=== PATIENT | female | born 1995 | race Hispanic/Latino ===

== ENCOUNTER 2018-03-03 22:45 | Emergency (ER) | payer OTHER ==
[2018-03-03 22:58] VITALS: O2SAT 99
--- NOTE | 2018-03-04 00:03 | ED PDOC ---
HPI: Back Time Seen by Provider: 03/03/18 23:32 Chief Complaint (Nursing): Back Pain Chief Complaint (Provider): Right flank pain History Per: Patient Additional Complaint(s): 22 y/o F with hx of scoliosis as a child requiring surgery who presents with Right sided flank pain since 4am this morning. Pt states that she suddenly began having Right sided back pain at about 4 am this morning. She had one episode of N/V at that time. She has been drinking normally but continues to have the back pain no matter what position she sits in. Nothing makes the pain better. She took one extra strength Tylenol at about 5am this morning with minimal impr ovement. Denies fever, chills, night sweats, diarrhea, cough, sore throat. She admits to mild dyuria since this morning. Denies urinary frequency or hesitancy. Past Medical History Reviewed: Historical Data, Nursing Documentation, Vital Signs Vital Signs: Last Vital Signs Temp 98.9 F 03/03/18 22:55 Pulse 68 03/03/18 22:55 Resp 18 03/03/18 22:55 BP 121/68 03/03/18 22:55 Pulse Ox 99 03/03/18 22:55 - Medical History PMH: No Chronic Diseases Other PMH: scoliosis as a child - Surgical History Surgical History: Back Surgery (SPINAL FUSION), Tonsillectomy - Family History Family History: States: Unknown Family Hx - Home Medications Home Medications: Ambulatory Orders Medication Instructions Recorded RX: No Known Home Med 07/01/15 - Allergies Allergies/Adverse Reactions: Allergies Allergy/AdvReac Type Severity Reaction Status Date / Time No Known Allergies Allergy Verified 10/27/17 17:22 Physical Exam - Reviewed Nursing Documentation Reviewed: Yes Vital Signs Reviewed: Yes - Physical Exam Appears: Positive for: Uncomfortable Skin: Positive for: Normal Color Eye Exam: Positive for: Normal appearance ENT: Positive for: Normal ENT Inspection Neck: Positive for: Normal Cardiovascular/Chest: Positive for: Regular Rate, Rhythm Respiratory: Positive for: Normal Breath Sounds Gastrointestinal/Abdominal: Positive for: Soft, Tenderness (mild RUQ). Negative for: Distended, Guarding, Rebound Back: Positive for: R CVA Tenderness (+ Right CVA tenderness), Decreased ROM (mild RIght sided back tenderness on flexion of back. ). Negative for: L CVA Tenderness Neurologic/Psych: Positive for: Alert, Oriented - Laboratory Results Result Diagrams: 03/03/18 23:45 - ECG O2 Sat by Pulse Oximetry: 99 Medical Decision Making Medical Decision Making: CBC, CMP Normal Saline 1L fluid bolus Toradol 15mg IV x 1 CT abd/pelvis w/o contrast Urine dip: LE negative, Nitrate negative, no blood noted. Urine preg: negative Pt endorsed to JADYN Hernandez pending CT scan and blood work results and re- evaluation. Disposition - Clinical Impression Clinical Impression: Flank pain, acute - Patient ED Disposition Is Patient to be Admitted: Transfer of Care (JADYN Hernandez) - Disposition Disposition: Transfer of Care Disposition Time: 00:37 Condition: FAIR Forms: [employer] (Paraguayan)
[2018-03-04 00:05] LABS: BASO # 0.1 K/uL (0.0-0.2); BASO % 1.1 % (0.0-2.0); EOS # 0.4 K/uL (0.0-0.7); EOS % 4.8 % (0.0-4.0); HEMOGLOBIN 13.9 g/dL (12.0-16.0); LYMPH # 2.6 K/uL (1.0-4.3); LYMPH % 28.4 % (20.0-40.0); MEAN CELL VOLUME 93.1 fl (81.0-99.0); MEAN CORPUSCULAR HEMOGLOBIN 31.7 pg (27.0-31.0); MEAN PLATELET VOLUME 7.1 fl (7.2-11.7); MONO # 0.9 K/uL (0.0-0.8); MONO % 10.1 % (0.0-10.0); NEUT # 5.1 K/uL (1.8-7.0); NEUT % 55.6 % (50.0-75.0); RBC 4.39 Mil/uL (3.80-5.20); WHITE BLOOD COUNT 9.2 K/uL (4.8-10.8)
[2018-03-04 00:15] LABS: ALB/GLOB RATIO 1.5 (1.0-2.1); ALBUMIN 4.8 g/dL (3.5-5.0); ALT/SGPT 27 U/L (9-52); AST/SGOT 38 U/L (14-36); BLOOD UREA NITROGEN 11 mg/dl (7-17); CALCIUM 10.1 mg/dL (8.4-10.2); GFR NON-AFRICAN AMERICAN > 60
[2018-03-04] MEDS ORDERED: Sodium Chloride 0.9% 1,000 ML IV SCH (00:30)
--- NOTE | 2018-03-04 00:47 | ED PDOC ---
- Laboratory Results Result Diagrams: 03/03/18 23:45 03/03/18 23:45 Lab Results: Total Bilirubin 0.3 mg/dl (0.2-1.3) 03/03/18 23:45 AST 38 U/L (14-36) H 03/03/18 23:45 ALT 27 U/L (9-52) 03/03/18 23:45 Alkaline Phosphatase 97 U/L (38-126) 03/03/18 23:45 Total Protein 8.0 G/DL (6.3-8.2) 03/03/18 23:45 Albumin 4.8 g/dL (3.5-5.0) 03/03/18 23:45 Globulin 3.2 gm/dL (2.2-3.9) 03/03/18 23:45 Albumin/Globulin Ratio 1.5 (1.0-2.1) 03/03/18 23:45 Urine POC: Negative - ECG O2 Sat by Pulse Oximetry: 99 (RA) Pulse Ox Interpretation: Normal Medical Decision Making Medical Decision Making: Patient endorsed to journalists and other writersDavid PA-C, at 0040 due to shift change. Pertinent details reviewed. Patient pending CT results and re-evaluation. Labs reviewed. 01:05 CT Abd Pelvis reviewed, [facility]Arad report follows FINDINGS: The visualized lung bases are unremarkable. Normal unenhanced liver. Normal gallbladder and extrahepatic biliary system. Normal unenhanced spleen. Normal pancreas. Normal bilateral adrenal glands. Normal size of the right kidney. There is no right renal mass. There are no right renal calculi. There is no right hydronephrosis. Normal visualized right ureter. Normal size of the left kidney. There is no left renal mass. 6 mm left renal nonobstructing stone. There is no left hydronephrosis. Normal visualized left ureter. Normal visualized stomach. Normal small intestine. Uncomplicated diverticulosis of the colon. The appendix is visualized and appears normal. There is no demonstrated peritoneal fluid. Normal abdominal aorta. Normal inferior vena cava. Normal retroperitoneum. Mild diffuse thickening of the urinary bladder. There is no pelvic mass lesion or lymphadenopathy. There is no pelvic fluid. Normal abdominal wall. Intrauterine device is unremarkable. Lower thoracic metallic hardware is unremarkable. IMPRESSION: Mild constipation. Nonobstructing left nephrolithiasis. On re-evaluation, patient reports slight improvement of symptoms. Patient reports she has regular BMs and no history of constipation. On exam, patient remains AAOx3, in no acute distress. Lungs clear to auscultation, cardiac RRR, abdomen soft, non-tender, repeat neuro exam shows no focal findings. (+) tenderness to right parathoracic/flank - likely musculoskeletal. Flexeril 10mg PO ordered - patient not driving home. Vitals stable. Lab/Diagnostic results d/w the patient in great detail. Diagnosis of acute flank pain, constipation, probable muscle strain d/w the patient. Based on history, exam and diagnostic results, plan will be for outpatient fo llow up with PMD. Patient instructed to follow-up with pmd / referral provided / the clinic in 1-2 days without fail. Advised to take medication as prescribed. Return to the emergency room at any time for any new or worsening symptoms. Patient states she fully agrees with and understands discharge instructions. States that she agrees with the plan and disposition. Verbalized and repeated discharge instructions and plan. I have given the patient opportunity to ask any additional questions. Disposition Counseled Patient/Family Regarding: Studies Performed, Diagnosis, Need For Followup, Rx Given - Clinical Impression Clinical Impression: Flank pain, acute, Constipation, Muscle strain - POA Present On Arrival: None - Disposition Referrals: [facility] [Provider Group] Disposition: Routine/Home Disposition Time: 01:40 Condition: FAIR Additional Instructions: The emergency medical care you received today was directed at your acute symptoms. If you were prescribed any medication, please fill it and take as directed. It may take several days for your symptoms to resolve. Return to the Emergency Department if your symptoms worsen, do not improve, or if you have any other problems. Please contact your doctor in 2 days for re-evaluation and follow up / or call one of the physicians/clinics you have been referred to that are listed on the Patient Visit Information form that is included in your discharge packet. Bring any paperwork you were given at discharge with you along with any medications you are taking to your follow up visit. Our treatment cannot replace ongoing medical care by a primary care provider (PCP) outside of the emergency department. Prescriptions: Docusate Sodium [Colace] 100 mg PO BID PRN #20 capsule PRN Reason: Constipation RX: Naproxen 500 mg PO BID PRN #20 tab PRN Reason: Pain, Moderate (4-7) Instructions: Constipation in Adults, High Fiber Diet, Muscle Strain (DC), Flank Pain Forms: [employer] (Mongolian) Print Language: CZECH Results - Lab Results Lab Results: 03/03/18 03/03/18 23:45 23:45 WBC 9.2 RBC 4.39 Hgb 13.9 Hct 40.9 MCV 93.1 MCH 31.7 H MCHC 34.0 RDW 13.0 Plt Count 389 MPV 7.1 L Neut % (Auto) 55.6 Lymph % (Auto) 28.4 [place] % (Auto) 10.1 H Eos % (Auto) 4.8 H Baso % (Auto) 1.1 Neut # (Auto) 5.1 Lymph # (Auto) 2.6 [place] # (Auto) 0.9 H Eos # (Auto) 0.4 Baso # (Auto) 0.1 Sodium 141 Potassium 3.9 Chloride 105 Carbon Dioxide 25 Anion Gap 15 BUN 11 Creatinine 0.7 Est GFR ( Amer) > 60 Est GFR (Non-Af Amer) > 60 Random Glucose 95 Calcium 10.1 Total Bilirubin 0.3 AST 38 H ALT 27 Alkaline Phosphatase 97 Total Protein 8.0 Albumin 4.8 Globulin 3.2 Albumin/Globulin Ratio 1.5
[2018-03-04 01:57] VITALS: BP 120/66; PULSE 72; RESP 16; TEMP 98.1
--- NOTE | 2018-03-04 10:49 | CT ---
Date of service: 03/04/2018 PROCEDURE: CT Abdomen and Pelvis without intravenous contrast HISTORY: Right flank pain, evaluate for nephrolithiasis COMPARISON: None. TECHNIQUE: Helical CT of the abdomen and pelvis was performed without oral or intravenous contrast as per referring physician request. Coronal and sagittal reformats were generated. Contrast dose: None Radiation dose: Total exam DLP = 261.0 mGy-cm. This CT exam was performed using one or more of the following dose reduction techniques: Automated exposure control, adjustment of the mA and/or kV according to patient size, and/or use of iterative reconstruction technique. FINDINGS: LOWER THORAX: Unremarkable. LIVER: Unremarkable. No gross lesion or ductal dilatation. GALLBLADDER AND BILE DUCTS: Unremarkable. PANCREAS: Unremarkable. No gross lesion or ductal dilatation. SPLEEN: Unremarkable. ADRENALS: Unremarkable. No mass. KIDNEYS AND URETERS: A small punctate intrarenal calculus identified at the midpole left kidney in the lateral calyx. No right radiodense urolithiasis. No perinephric fluid collection or obstructive uropathy is appreciate bilaterally. The bilateral ureters appear normal caliber overall. VASCULATURE: Unremarkable. No aortic aneurysm. No aortic atherosclerotic calcification or mural plaque present. BOWEL: Unremarkable. No obstruction. No gross mural thickening. APPENDIX: Unremarkable. Normal appendix. PERITONEUM: Unremarkable. No free fluid. No free air. LYMPH NODES: Unremarkable. No enlarged lymph nodes. BLADDER: Unremarkable. REPRODUCTIVE: Unremarkable. BONES: No acute fracture. OTHER FINDINGS: None. IMPRESSION: Punctate nonobstructing intrarenal calculus midpole left kidney. No obstructive uropathy bilaterally. Otherwise, unremarkable non contrast enhanced CT of the abdomen and pelvis. Concordant preliminary report from [facility], 03/04/2018 1:02 a.m..
== END 2018-03-04 01:57 | disposition home or self-care (01) ==
LOC: H.ER 22:45
DX: M54.9 Dorsalgia, unspecified (principal); K59.00 Constipation, unspecified; S39.012A Strain of muscle, fascia and tendon of lower back, initial encounter; Z87.39 Personal history of other diseases of the musculoskeletal system and connective tissue
CPT/HCPCS: 74176; 80053; 81025; 85025; 96361; 96374; 99283; J1885; J7030

== ENCOUNTER 2018-03-07 18:37 | Emergency (ER) | payer OTHER ==
[2018-03-07 19:32] VITALS: O2SAT 100
[2018-03-07] MEDS ORDERED: Sodium Chloride 0.9% 1,000 ML IV STA (20:27)
[2018-03-07 21:01] LABS: SQUAMOUS EPITHIAL 1 /hpf (0-5); URINE BACTERIA RARE (<OCC); URINE BILIRUBIN NEGATIVE (NEGATIVE); URINE BLOOD NEGATIVE (NEGATIVE); URINE CLARITY CLEAR (Clear); URINE COLOR STRAW (YELLOW); URINE GLUCOSE (UA) NEG (NEGATIVE); URINE LEUKOCYTE ESTERASE NEG Leu/uL (Negative); URINE PROTEIN NEGATIVE (NEGATIVE); URINE UROBILINOGEN 0.2-1.0 mg/dL (0.2-1.0)
--- NOTE | 2018-03-07 21:23 | ED PDOC ---
HPI: Back Time Seen by Provider: 03/07/18 19:55 Chief Complaint (Nursing): Back Pain Chief Complaint (Provider): Back Pain History Per: Patient History/Exam Limitations: no limitations Onset/Duration Of Symptoms: Days (x4) Current Symptoms Are (Timing): Still Present Additional Complaint(s): Patient is a 22 y/o female with no significant PMHx who presents to the ED for evaluation of right-sided flank pain ongoing for the past four days. Patient claims that pain is radiating to her lower back. Patient describes the quality of pain as sharp and an 8/10 in severity. Patient came into the ED four days ago for the same issue. Patient returned home and still had pain. Patient denies fever, N/V/D, difficulty walking, and any allergies. PCP: None Provided Past Medical History Reviewed: Historical Data, Nursing Documentation, Vital Signs Vital Signs: Last Vital Signs Temp 98.2 F 03/07/18 19:27 Pulse 82 03/07/18 19:27 Resp 16 03/07/18 19:27 BP 123/72 03/07/18 19:27 Pulse Ox 100 03/07/18 19:27 - Medical History PMH: No Chronic Diseases - Surgical History Surgical History: Back Surgery (SPINAL FUSION), Tonsillectomy - Family History Family History: States: Unknown Family Hx - Social History Current smoker - smoking cessation education provided: No Alcohol: Other (Stopped Drinking Recently) Drugs: Denies - Home Medications Home Medications: Ambulatory Orders Medication Instructions Recorded Docusate Sodium [Colace] 100 mg PO BID PRN #20 capsule 03/04/18 RX: Naproxen 500 mg PO BID PRN #20 tab 03/04/18 - Allergies Allergies/Adverse Reactions: Allergies Allergy/AdvReac Type Severity Reaction Status Date / Time No Known Allergies Allergy Verified 10/27/17 17:22 Review of Systems ROS Statement: Except As Marked, All Systems Reviewed And Found Negative Constitutional: Negative for: Fever, Chills Gastrointestinal: Negative for: Nausea, Vomiting, Diarrhea Musculoskeletal: Positive for: Back Pain (right flank ) Physical Exam - Reviewed Nursing Documentation Reviewed: Yes Vital Signs Reviewed: Yes - Physical Exam Appears: Positive for: No Acute Distress. Negative for: Uncomfortable Head Exam: Positive for: ATRAUMATIC, NORMAL INSPECTION, NORMOCEPHALIC Skin: Positive for: Normal Color Eye Exam: Positive for: Normal appearance ENT: Positive for: Normal ENT Inspection Neck: Positive for: Normal Cardiovascular/Chest: Positive for: Regular Rate, Rhythm Respiratory: Positive for: Normal Breath Sounds Gastrointestinal/Abdominal: Positive for: Normal Exam, Soft. Negative for: Tenderness Back: Positive for: Normal Inspection Extremity: Positive for: Normal ROM (Upper/Lower) Neurologic/Psych: Positive for: Alert, Oriented - Laboratory Results Result Diagrams: 03/07/18 21:09 03/07/18 21:09 Lab Results: Urine Color Straw (YELLOW) 03/07/18 20:43 Urine Clarity Clear (Clear) 03/07/18 20:43 Urine pH 7.0 (5.0-8.0) 03/07/18 20:43 Ur Specific [place] 1.006 (1.003-1.030) 03/07/18 20:43 Urine Protein Negative mg/dL (NEGATIVE) 03/07/18 20:43 Urine Glucose (UA) Neg mg/dL (NEGATIVE) 03/07/18 20:43 Urine Ketones Negative mg/dL (NEGATIVE) 03/07/18 20:43 Urine Blood Negative (NEGATIVE) 03/07/18 20:43 Urine Nitrate Negative (NEGATIVE) 03/07/18 20:43 Urine Bilirubin Negative (NEGATIVE) 03/07/18 20:43 Urine Urobilinogen 0.2-1.0 mg/dL (0.2-1.0) 03/07/18 20:43 Ur Leukocyte Esterase Neg Tres/uL (Negative) 03/07/18 20:43 Urine RBC (Auto) 1 /hpf (0-3) 03/07/18 20:43 Urine Microscopic WBC < 1 /hpf (0-5) 03/07/18 20:43 Ur Squamous Epith Cells 1 /hpf (0-5) 03/07/18 20:43 Urine Bacteria Rare (<OCC) 03/07/18 20:43 - ECG O2 Sat by Pulse Oximetry: 100 (RA) Pulse Ox Interpretation: Normal Medical Decision Making Medical Decision Making: Time: 2034 Plan:flank pain rule out uti and intraabdominal abscess CMP CBC IV Fluids Toradol 30 mg IV Zofran INj 4 mg IV Urine C&S UA Renal [US] i reviewed prior CT findings. non obstructing ston e on the R but her pain is on left Time: 2149 Renal US FINDINGS: RIGHT KIDNEY: Unremarkable. Normal in size and contour. The right kidney measured approx imately 10.0 x 3.6 x 5.6 cm in longitudinal, AP and transverse dimensions respectively. No renal mass or calculus. No hydronephrosis. LEFT KIDNEY: Unremarkable. Normal in size and contour. The left kidney measured approximately 10.0 x 5.9 x 3.9 cm in longitudinal, AP and transverse dimensions respectively. No renal mass. An approximately 6.0 x 5.0 mm non--obstructing calculusis noted within the mid-to lower left renal pole. No hydronephrosis. BLADDER: Not included in the evaluation. MISCELLANEOUS: No other significant abnormality evident. IMPRESSION: 1. No acute abnormality evident. No hydronephrosis. 2. A 6.0 x 5.0 mm non-obstructing calculus is seen within the mid-lower left r enal pole. Electronically signed on Mar 07, 2018 9:50:45 PM EST by: Manohar Pastor M.D., MBA Certified By [facility] Fellowship Trained MRI and CT Specialist 00:15 Patient was made aware of US findings. No further treatment is needed in the ED at this time. Patient advised to follow up with PMD. Return precautions provided. pt reeval and she icomfortbaly talk ing on her phone. she appears well, in no distress. stable for dc and outpt follow up Scribe Attestation: Documented by Jaya Dixon, acting as a scribe for provider Ale Gonzalez MD. All medical record entries made by the Scribe were at my direction and personally dictated by me. I have reviewed the chart and agree that the record accurately reflects my personal performance of the history, physical exam, [facility] decision making, and the department course for this patient. I have also personally directed, reviewed, and agree with the discharge instructions and disposition. Disposition - Clinical Impression Clinical Impression: Back pain - Patient ED Disposition Is Patient to be Admitted: No Counseled Patient/Family Regarding: Studies Performed, Diagnosis - Disposition Disposition: Routine/Home Disposition Time: 00:15 Condition: IMPROVED Additional Instructions: follow up with your primary doctor in 1-2 days take motrin for pain return to the ED with any worsening or concerning symptoms Instructions: Low Back Pain (DC) Forms: [employer] (Amharic)
[2018-03-07 21:35] LABS: BASO % 0.4 % (0.0-2.0); EOS # 0.6 K/uL (0.0-0.7); EOS % 5.8 % (0.0-4.0); HEMOGLOBIN 12.5 g/dL (12.0-16.0); LYMPH % 21.4 % (20.0-40.0); MEAN CELL VOLUME 93.3 fl (81.0-99.0); MEAN CORPUSCULAR HEMOGLOBIN 31.5 pg (27.0-31.0); MEAN CORPUSCULAR HGB CONC 33.8 g/dL (33.0-37.0); MEAN PLATELET VOLUME 7.4 fl (7.2-11.7); MONO # 0.9 K/uL (0.0-0.8); MONO % 9.1 % (0.0-10.0); NEUT % 63.3 % (50.0-75.0); RBC 3.97 Mil/uL (3.80-5.20); RED CELL DISTRIBUTION WIDTH 12.9 % (11.5-14.5); WHITE BLOOD COUNT 9.5 K/uL (4.8-10.8)
[2018-03-07 21:55] LABS: ALB/GLOB RATIO 1.5 (1.0-2.1); ALBUMIN 4.4 g/dL (3.5-5.0); ALT/SGPT 26 U/L (9-52); AST/SGOT 30 U/L (14-36); BLOOD UREA NITROGEN 11 mg/dl (7-17); CALCIUM 9.6 mg/dL (8.4-10.2); GFR NON-AFRICAN AMERICAN > 60
[2018-03-08 01:00] VITALS: BP 120/70; PULSE 80; RESP 18; TEMP 98
--- NOTE | 2018-03-08 10:52 | US ---
Date of service: 03/07/2018 PROCEDURE: Ultrasound of the Kidneys HISTORY: Follow-up renal calculus disease. COMPARISON: 03/04/2018. CT abdomen and pelvis.. TECHNIQUE: Sonogram of the kidneys. FINDINGS: RIGHT KIDNEY: Measures: 5.6 x 3.6 x 10 0 cm. Normal in size, contour and echogenicity. No stone, solid mass lesion or hydronephrosis visualized. LEFT KIDNEY: Measures: 3910.0 cm. Normal in size, contour and echogenicity. Echogenic focus mid pole region 5 x 6 x 5 mm consistent with. OTHER FINDINGS: None. IMPRESSION: Solitary, small nonobstructing left renal calculus, confirming findings on recent CT scan. Concordant findings (preliminary report) provided by [facility].
== END 2018-03-08 00:40 | disposition home or self-care (01) ==
LOC: H.ER 18:37
DX: R10.9 Unspecified abdominal pain (principal); N20.0 Calculus of kidney
CPT/HCPCS: 76770; 80053; 81003; 85025; 87086; 96374; 96375; 99283; J1885; J2405; J7030